=== PATIENT | female | born 1990 | race Hispanic/Latino ===

== ENCOUNTER 2020-09-25 21:17 | Inpatient (IN) | payer SELFPAY ==
[~2020-09-25] VITALS: Ht 167.6 cm; Wt 102.3 kg
[2020-09-25 21:31] VITALS: BP 131/76
[2020-09-25] MEDS ORDERED: CEFAZOLIN SODIUM 1 GM VIAL IV STA (21:58)
[2020-09-25] MEDS ORDERED: MORPHINE 5 MG/ML VIAL (5MG OR GREATER DOSE) IVP ONE (22:00)
[2020-09-25] MEDS ORDERED: ONDANSETRON 4MG INJ IVP ONE (22:00)
[2020-09-25] MEDS ORDERED: LACTATED RINGERS 1000ML 1,000 ML IV ONE (22:00)
[2020-09-25 22:17] LABS: BASOPHILS % (AUTO) 0.2 % (0.0-5.0); EOSINOPHILS % (AUTO) 0.8 % (0.0-8.0); LYMPHOCYTES % (AUTO) 17.3 % (21.0-51.0); MEAN CORPUSCULAR HEMOGLOBIN 30.1 pg (27.0-33.0); MEAN CORPUSCULAR HGB CONC 33.6 g/dL (32.0-36.0); MEAN CORPUSCULAR VOLUME 89.6 fL (79-99); MONOCYTES % (AUTO) 6.3 % (3.0-13.0); PLATELET COUNT (AUTO) 326 K/uL (130-400); RED BLOOD CELL COUNT(AUTO) 4.69 MIL/uL (4.00-5.50); RED CELL DISTRIBUTION WIDTH 12.5 % (11.0-15.5); WHITE BLOOD COUNT (AUTO) 15.7 K/uL (4.8-10.8)
[2020-09-25 22:28] LABS: CREATININE 0.9 mg/dL (0.5-1.5); POTASSIUM 3.6 mmol/L (3.5-5.1)
[2020-09-25 22:31] LABS: PROTHROMBIN TIME 10.9 SEC (9.6-11.6)
[2020-09-25 22:32] LABS: ALBUMIN 3.7 g/dL (3.5-5.0); BILIRUBIN,TOTAL 0.4 mg/dL (0.2-1.0); PARTIAL THROMBOPLASTIN TIME 22.2 SEC (26.3-35.5)
[2020-09-25] MEDS ORDERED: KETAMINE 50MG/ML SYRINGE 100 MG in 0.9%NACL 100ML 100 ML IV SCH (23:30)
[2020-09-25] MEDS ORDERED: KETAMINE HCL 100 MG/ML 5ML VIAL IJ ONE ×2 (23:32→23:52)
[2020-09-25 23:45] VITALS: BP 139/77
[2020-09-26] VITALS (26 sets, daily range): BP systolic 100–132; BP diastolic 54–79
[2020-09-26 02:58] LABS: APPEARANCE,URINE Clear (CLEAR); BILIRUBIN,URINE Negative (NEGATIVE); COLOR,URINE Orange (YELLOW); GLUCOSE, URINE (UA) Negative (NEGATIVE); KETONES,URINE Negative (NEGATIVE); LEUKOCYTE ESTERASE ,URINE Small (NEGATIVE); NITRATE,URINE Negative (NEGATIVE); OCCULT BLOOD,URINE Large (NEGATIVE); PROTEIN,URINE POS 2+ mg/dL (NEGATIVE)
[2020-09-26] MEDS ORDERED: NITROGLYCERIN 0.4 MG SL TAB SL PRN (03:00)
[2020-09-26] MEDS ORDERED: ACETAMINOPHEN 325 MG TAB PO PRN (03:00)
[2020-09-26 03:06] LABS: AMPHET/METH SCREEN,URINE NEGATIVE (NEGATIVE); BARBITURATE SCREEN, URINE NEGATIVE (NEGATIVE); BENZODIAZEPINES SCREEN,URINE NEGATIVE (NEGATIVE); CANNABINOID SCREEN,URINE NEGATIVE (NEGATIVE); COCAINE SCREEN,URINE NEGATIVE (NEGATIVE); OPIATE SCREEN,URINE POSITIVE (NEGATIVE); PHENCYCLIDINE SCREEN,URINE NEGATIVE (NEGATIVE)
[2020-09-26 03:20] LABS: BACTERIA,URINE Few /HPF (None Seen); RBC,URINE 26-50 /HPF (0-1)
[2020-09-26 03:21] LABS: SQUAMOUS EPITHELIAL CELL,UR 0-2 /HPF (0-2)
[2020-09-26] MEDS: 0.9%NACL 1000ML 1,000 ML IV SCH ×3 (03:35→20:05)
[2020-09-26] MEDS: MORPHINE 2 MG SYG IV PRN ×2 (03:36→08:30)
[2020-09-26 05:20] LABS: BASOPHILS % (AUTO) 0.2 % (0.0-5.0); LYMPHOCYTES % (AUTO) 10.1 % (21.0-51.0); MEAN CORPUSCULAR HEMOGLOBIN 30.3 pg (27.0-33.0); MEAN CORPUSCULAR HGB CONC 33.9 g/dL (32.0-36.0); MEAN CORPUSCULAR VOLUME 89.5 fL (79-99); MONOCYTES % (AUTO) 1.4 % (3.0-13.0); NEUTROPHILS % (AUTO) 87.8 % (40.0-77.0); PLATELET COUNT (AUTO) 315 K/uL (130-400); RED BLOOD CELL COUNT(AUTO) 4.58 MIL/uL (4.00-5.50); RED CELL DISTRIBUTION WIDTH 12.4 % (11.0-15.5); WHITE BLOOD COUNT (AUTO) 13.2 K/uL (4.8-10.8)
[2020-09-26 05:33] LABS: HEMOGLOBIN A1C 5.5 % (4.0-6.0)
[2020-09-26 05:35] LABS: INR 1.03 (0.85-1.15); PROTHROMBIN TIME 11.2 SEC (9.6-11.6)
[2020-09-26 05:36] LABS: PARTIAL THROMBOPLASTIN TIME 24.2 SEC (26.3-35.5)
[2020-09-26 05:43] LABS: ALBUMIN 3.6 g/dL (3.5-5.0); BILIRUBIN,TOTAL 0.5 mg/dL (0.2-1.0); CREATININE 0.9 mg/dL (0.5-1.5); MAGNESIUM 2.2 mg/dL (1.80-2.40); TOTAL PROTEIN, SERUM 7.8 g/dL (6.0-8.3)
[2020-09-26] MEDS ORDERED: LIDOCAINE PF 100MG/5ML (2%) SYRINGE 5ML ONE (08:03)
[2020-09-26] MEDS ORDERED: MIDAZOLAM HCL 1 MG/ML 2ML VIAL ONE (08:03)
[2020-09-26] MEDS ORDERED: FENTANYL CITRATE PF 50 MCG/1 ML 5ML AMP IV ONE (08:04)
[2020-09-26] MEDS ORDERED: PROPOFOL 10 MG/ML 20ML VIAL IV ONE (08:04)
[2020-09-26] MEDS ORDERED: ROCURONIUM 10MG/1ML SYR 10 MG/ML ML ONE (08:04)
[2020-09-26] MEDS: FAMOTIDINE 20MG VIAL IV SCH ×2 (08:32→20:05)
[2020-09-26] MEDS ORDERED: CEFAZOLIN SODIUM 1 GM VIAL ONE (08:55)
[2020-09-26] MEDS ORDERED: ROPIVACAINE 0.5% 5MG/ML 30ML IJ ONE (09:02)
[2020-09-26] MEDS ORDERED: DEXAMETHASONE SOD PHOSPHATE 10MG/ML 1ML VIAL ONE (09:09)
[2020-09-26] MEDS ORDERED: KETOROLAC 30MG VIAL (30MG/ML) ONE (10:33)
[2020-09-26] MEDS ORDERED: GLYCOPYRROLATE 1 MG/5 ML SYRINGE ONE (10:42)
[2020-09-26] MEDS ORDERED: NEOSTIGMINE 5MG/5ML SYR IV ONE (10:42)
[2020-09-26] MEDS: ONDANSETRON 4MG INJ IV PRN ×2 (14:39→20:19)
[2020-09-26] MEDS ORDERED: ENOXAPARIN SODIUM 40 MG/0.4 ML SYRINGE SQ ONE (20:00)
[2020-09-26] MEDS ORDERED: CEFTRIAXONE 1G VIAL IVP ONE (20:00)
[2020-09-26] MEDS: ENOXAPARIN SODIUM 30 MG/0.3 ML SQ SCH (20:30)
[2020-09-27] VITALS: BP 120/68
[2020-09-27 04:00] VITALS: BP 117/56
[2020-09-27 05:47] LABS: BASOPHILS % (AUTO) 0.1 % (0.0-5.0); HEMATOCRIT 36.5 % (36-48); LYMPHOCYTES % (AUTO) 14.9 % (21.0-51.0); MEAN CORPUSCULAR HGB CONC 33.4 g/dL (32.0-36.0); MEAN CORPUSCULAR VOLUME 89.9 fL (79-99); MONOCYTES % (AUTO) 5.6 % (3.0-13.0); PLATELET COUNT (AUTO) 277 K/uL (130-400); RED BLOOD CELL COUNT(AUTO) 4.06 MIL/uL (4.00-5.50); RED CELL DISTRIBUTION WIDTH 12.6 % (11.0-15.5)
[2020-09-27] MEDS: 0.9%NACL 1000ML 1,000 ML IV SCH (05:48)
[2020-09-27 06:14] LABS: ALBUMIN 2.8 g/dL (3.5-5.0); BILIRUBIN,DIRECT 0.1 mg/dL (0.0-0.3); BILIRUBIN,TOTAL 0.3 mg/dL (0.2-1.0); CREATININE 0.8 mg/dL (0.5-1.5); POTASSIUM 3.6 mmol/L (3.5-5.1); TOTAL PROTEIN, SERUM 6.4 g/dL (6.0-8.3)
[2020-09-27 08:00] VITALS: BP 97/57
[2020-09-27] MEDS: FAMOTIDINE 20MG VIAL IV SCH ×3 (10:09→21:59)
[2020-09-27] MEDS: ENOXAPARIN SODIUM 30 MG/0.3 ML SQ SCH (10:10)
[2020-09-27] MEDS: ACETAMINOPHEN 325 MG TAB PO PRN ×3 (10:28→21:58)
[2020-09-27 12:00] VITALS: BP 122/86
[2020-09-27] MEDS: MORPHINE 2 MG SYG IV PRN ×3 (13:24→22:15)
[2020-09-27 16:00] VITALS: BP 118/63
[2020-09-27] MEDS: CEFTRIAXONE 1G VIAL IVP SCH (17:17)
[2020-09-27 20:00] VITALS: BP 120/74
[2020-09-28] VITALS: BP 132/76
[2020-09-28] MEDS: MORPHINE 2 MG SYG IV PRN ×3 (02:33→13:10)
[2020-09-28 04:00] VITALS: BP 126/72
[2020-09-28] MEDS ORDERED: MORPHINE 2 MG SYG IVP ONE (04:30)
[2020-09-28] MEDS ORDERED: ACETAMINOPHEN WITH CODEINE 1 TAB TAB PO PRN (06:30)
[2020-09-28 07:02] LABS: BASOPHILS % (AUTO) 0.3 % (0.0-5.0); EOSINOPHILS % (AUTO) 0.1 % (0.0-8.0); HEMATOCRIT 37.4 % (36-48); LYMPHOCYTES % (AUTO) 18.2 % (21.0-51.0); MEAN CORPUSCULAR HEMOGLOBIN 30.3 pg (27.0-33.0); MEAN CORPUSCULAR HGB CONC 34.2 g/dL (32.0-36.0); MEAN CORPUSCULAR VOLUME 88.6 fL (79-99); MONOCYTES % (AUTO) 6.1 % (3.0-13.0); NEUTROPHILS % (AUTO) 74.8 % (40.0-77.0); PLATELET COUNT (AUTO) 299 K/uL (130-400); RED BLOOD CELL COUNT(AUTO) 4.22 MIL/uL (4.00-5.50); RED CELL DISTRIBUTION WIDTH 12.4 % (11.0-15.5); WHITE BLOOD COUNT (AUTO) 15.5 K/uL (4.8-10.8)
[2020-09-28 07:26] LABS: CREATININE 0.8 mg/dL (0.5-1.5); MAGNESIUM 2.1 mg/dL (1.80-2.40); POTASSIUM 3.4 mmol/L (3.5-5.1)
[2020-09-28 08:00] VITALS: BP 135/75
[2020-09-28] MEDS ORDERED: DOCUSATE SODIUM 100 MG CAP PO SCH (09:00)
[2020-09-28] MEDS ORDERED: KCL 20 MEQ ERTAB PO SCH (09:00)
[2020-09-28] MEDS ORDERED: SENNOSIDES 8.6 MG TABLET PO SCH (09:00)
[2020-09-28] MEDS: ENOXAPARIN SODIUM 30 MG/0.3 ML SQ SCH (10:30)
[2020-09-28] MEDS: FAMOTIDINE 20MG VIAL IV SCH (10:31)
[2020-09-28 12:00] VITALS: BP 135/80
[2020-09-28] MEDS: CEFTRIAXONE 1G VIAL IVP SCH (16:00)
[2020-09-28] MEDS ORDERED: ASPI-1005 PO (16:02)
[2020-09-28 16:10] VITALS: BP 141/95
[2020-09-28] MEDS ORDERED: ASPIRIN 81MG CHEW TAB PO ONE (16:30)
== END 2020-09-28 18:00 | disposition home or self-care (01) | DRG 494 ==
LOC: EDH 21:17 → EDHIP 21:18 → 3CH 09-26 02:20
PROVIDERS: ADMIT Internal Medicine; ATTEND Internal Medicine
PROC: 3E0T33Z Introduction of Anti-inflammatory into Peripheral Nerves and Plexi, Percutaneous Approach (ICD-10-PCS; 2020-09-26)
PROC: 0QSK04Z Reposition Left Fibula with Internal Fixation Device, Open Approach (ICD-10-PCS; principal; 2020-09-26 09:00)
PROC: 3E0T3BZ Introduction of Anesthetic Agent into Peripheral Nerves and Plexi, Percutaneous Approach (ICD-10-PCS; 2020-09-26 09:00)
DX: S82.892B Other fracture of left lower leg, initial encounter for open fracture type I or II (principal); D72.829 Elevated white blood cell count, unspecified; S93.05XA Dislocation of left ankle joint, initial encounter; V00.111A Fall from in-line roller-skates, initial encounter; Y93.51 Activity, roller skating (inline) and skateboarding; Y92.89 Other specified places as the place of occurrence of the external cause; Y99.8 Other external cause status; Z80.41 Family history of malignant neoplasm of ovary; Z83.3 Family history of diabetes mellitus; Z82.49 Family history of ischemic heart disease and other diseases of the circulatory system
CPT/HCPCS: 36415; 71045; 73600; 73610; 80048; 80053; 80076; 80305; 81001; 81025; 83036; 83735; 84145; 85025; 85610; 85730; 87088; 93005; 97039; G0378; J0690; J0696; J1100; J1650; J1885; J2001; J2250; J2270; J2405; J2704; J2710; J2795; J3010; J3490; J7030; J7120